=== PATIENT | male | born 1935 | race Caucasian/White ===

== ENCOUNTER → 2018-11-11 | Outpatient (CLI) | payer MEDICARE, OTHER ==
[2017-02-20 12:00] VITALS: BP 116/75
[~2018-11-11] MED LIST: ACET500T68 PO; ALPR0.5T6 PO; ASPI-612 PO; CALC-515 PO; CELE200C PO; CHOL4POW2 PO; DABI150C PO; DIPH25CA58 PO; FERR325T14 PO; GLUC100018 PO; LACT1CAP44 PO; LISI30TA4 PO; LORA10TA3 PO; MAGN400T3 PO; MECL25TA3 PO; METO-239 PO; OMEG1CAP38 PO; OMEP20TA8 PO; PRAV20TA2 PO; SERT50TA PO; SOTA80TA48 PO; UBID100C PO
[2018-11-11 09:53] LABS: CREATININE 0.8 mg/dL (0.7-1.3); GFR 92.3
== END | disposition home or self-care (01) ==
LOC: MRI 08:44
PROVIDERS: ATTEND Family Medicine
DX: R22.32 Localized swelling, mass and lump, left upper limb (principal)
CPT/HCPCS: 36415; 82565; 84520

== ENCOUNTER → 2018-11-13 | Outpatient (CLI) | payer MEDICARE, OTHER ==
[2017-02-20 12:00] VITALS: BP 116/75
[~2018-11-13] MED LIST changes: +GADOTERATE 7.5 MMOL/15ML VIAL. IVP ONE
--- NOTE | 2018-11-13 14:35 | RAD ---
MR of the right shoulder with and without contrast HISTORY: Mass above the right acromioclavicular joint. TECHNIQUE: Routine pre and postcontrast images are obtained. FINDINGS: The acromioclavicular joint is degenerative with associated cysts and spurring. Soft tissue lesion above the AC joint consistent fluid signal with an enhancing wall and a multi lobulated morphology. This measures 3.4 cm x 2.0 cm x 2.0 cm. There is mild surrounding soft tissue edema. The appearance is compatible with a synovial cyst. Complete rupture of supraspinatus and infraspinatus tendons with severe retraction to the superior glenoid, about 4.5 cm. High-grade or complete subscapularis tendon tear. Severe muscle atrophy with fatty infiltration. Small subdeltoid bursal effusion. Severe glenohumeral joint primary osteoarthritis with severe cartilage loss and bone loss with osteophytes. Circumferential labral degeneration and degenerative tearing. Biceps tendon poorly seen likely torn. Intraosseous cysts at the humeral head. No aggressive bone destruction. No evidence of acute fracture. Mild generalized soft tissue and intramuscular edema about the shoulder. IMPRESSION: 1. Massive rotator cuff tear with severe retraction and atrophy. 2. No severe primary osteoarthritis. 3. Circumferential labral degeneration and tearing. 4. Biceps tendon poorly seen compatible with tear. 5. Cystic lesion above the acromioclavicular joint most compatible with a synovial cyst. Electronically signed by: Manpreet Gonzalez MD (11/13/2018 2:32 PM) [id number]
== END | disposition home or self-care (01) ==
LOC: MRI 12:33
PROVIDERS: ATTEND Family Medicine
DX: S46.011A Strain of muscle(s) and tendon(s) of the rotator cuff of right shoulder, initial encounter (principal); M62.511 Muscle wasting and atrophy, not elsewhere classified, right shoulder; M25.411 Effusion, right shoulder; M19.011 Primary osteoarthritis, right shoulder; M25.711 Osteophyte, right shoulder; M25.811 Other specified joint disorders, right shoulder; I10 Essential (primary) hypertension; Z79.01 Long term (current) use of anticoagulants; Z88.8 Allergy status to other drugs, medicaments and biological substances; X58.XXXA Exposure to other specified factors, initial encounter; Y93.89 Activity, other specified; Y92.89 Other specified places as the place of occurrence of the external cause; Y99.8 Other external cause status
CPT/HCPCS: 73223; A9575

== ENCOUNTER → 2019-01-12 | Outpatient (CLI) | payer MEDICARE, OTHER ==
[2017-02-20 12:00] VITALS: BP 116/75
[~2019-01-12] MED LIST changes: -GADOTERATE 7.5 MMOL/15ML VIAL. IVP ONE
--- NOTE | 2019-01-12 15:33 | RAD ---
EXAM: Right hip, 2 views. HISTORY: Pain. COMPARISON: None. FINDINGS: 2 views of the right hip are obtained. There is mild marginal femoral head spurring. There is no fracture, dislocation or subacute fixation. There are right inguinal clips likely due to catheterization. There is partial visualization of an aortobiiliac endograft. IMPRESSION: Mild right hip osteoarthritis. Electronically signed by: Sahra Ceballos MD (01/12/2019 3:30 PM) [place] [id number]
== END | disposition home or self-care (01) ==
LOC: RAD 12:45
PROVIDERS: ATTEND Family Medicine
DX: M16.11 Unilateral primary osteoarthritis, right hip (principal)
CPT/HCPCS: 73502

== ENCOUNTER → 2019-01-26 | Outpatient (CLI) | payer MEDICARE, OTHER ==
[2017-02-20 12:00] VITALS: BP 116/75
[~2019-01-26] MED LIST changes: +BUPIVACAINE MPF 0.5% 30 ML VIAL. INJ ONE; +CONTRAST GIVEN. MC PRN; +IOHEXOL 300 MG/ML 50 ML VIAL. IJ ONE; +IOHEXOL 300 MG/ML 50 ML VIAL. INT ART ONE; +LIDOCAINE WITH 8.4% SOD BICARB 3 ML DISP.SYRIN. INJ ONE; +methylPREDNISolone ACETATE 40 MG/ML VIAL. INJ ONE; +methylPREDNISolone ACETATE 40 MG/ML VIAL. INT ART ONE
--- NOTE | 2019-01-26 14:07 | RAD ---
Indication: Right hip pain. Patient here for hip injection. TECHNIQUE: After explaining risks and benefits informed consent was obtained. Appropriate entrance site was chosen over the right hip joint. The skin was prepped and draped using usual sterile procedure. 1 percent lidocaine was given effusion. Under fluoroscopy guidance 22-gauge needle was introduced in the joint space. The placement was confirmed with injection of iodinated contrast. 4 mL of bupivacaine and 1 mL of 40 mg Depo-Medrol is injected in the joint space. The needle was drawn and then it was placed. COMPARISON: None FINDINGS/ impression: Right hip joint steroid injection without immediate complication. Electronically signed by: Sohan Stoner DO (01/26/2019 2:04 PM) [facility]
== END | disposition home or self-care (01) ==
LOC: RAD 15:07
PROVIDERS: ATTEND Family Medicine
DX: M25.551 Pain in right hip (principal)
CPT/HCPCS: 20610; 77002; J1030; J3490; Q9967; 20605